=== PATIENT | female | born 1990 | race Caucasian/White ===

== ENCOUNTER → 2018-05-11 | Outpatient (CLI) | payer OTHER ==
--- NOTE | 2018-05-11 19:41 | REP ---
HISTORY: Back pain. COMPARISON: None. FINDINGS: Five views of the lumbosacral spine show no acute fracture, dislocation or subluxation. The intervertebral disc spaces are symmetric and well maintained. There is no spondylolisthesis. The pedicles are intact bilaterally and there is no destructive osseous lesions. IMPRESSION: Unremarkable lumbosacral spine series. Electronically Signed by Dominic Rendon DO 05/11/2018 08:26 P
--- NOTE | 2018-05-11 20:32 | REP ---
HISTORY: Pain. COMPARISON: None. FINDINGS: No acute fracture or destructive osseous lesion. Electronically Signed by Dominic Rendon DO 05/11/2018 08:36 P
== END ==
LOC: M LRY 18:59
PROVIDERS: ATTEND Physician Assistant
DX: S39.92XA Unspecified injury of lower back, initial encounter (principal); X58.XXXA Exposure to other specified factors, initial encounter; Y92.9 Unspecified place or not applicable